=== PATIENT | female | born 1960 | race Caucasian/White ===

== ENCOUNTER → 2017-02-07 | Outpatient (REF) | payer OTHER ==
[2017-02-07 11:37] LABS: ALBUMIN 3.7 GM/DL (3.2-5.2); ALBUMIN/GLOBULIN RATIO 1.12 (1.00-1.93); ALKALINE PHOSPHATASE 67 U/L (45-117); ALT/SGPT 21 U/L (12-78); ANION GAP 7 MEQ/L (8-16); AST/SGOT 15 U/L (15-37); BILIRUBIN,TOTAL 0.5 MG/DL (0.2-1.0); BLOOD UREA NITROGEN 19 MG/DL (7-18); CALCIUM LEVEL 8.6 MG/DL (8.5-10.1); CARBON DIOXIDE LEVEL 29 MEQ/L (21-32); CHLORIDE LEVEL 105 MEQ/L (98-107); CHOLESTEROL LEVEL 192 MG/DL (<200); CREATININE FOR GFR 0.65 MG/DL (0.55-1.02); GLOMERULAR FILTRATION RATE > 60.0 (>51); GLUCOSE, FASTING 87 MG/DL (70-105); SODIUM LEVEL 141 MEQ/L (136-145); TRIGLYCERIDES LEVEL 64 MG/DL (<150)
== END ==
LOC: M SFHCCLAY 07:48
PROVIDERS: ATTEND Family Medicine
DX: I10 Essential (primary) hypertension (principal); E78.2 Mixed hyperlipidemia; E55.9 Vitamin D deficiency, unspecified

== ENCOUNTER → 2018-08-13 | Outpatient (REF) | payer OTHER ==
[2018-08-13 12:08] LABS: ALBUMIN 3.8 GM/DL (3.2-5.2); ALBUMIN/GLOBULIN RATIO 1.27 (1.00-1.93); ALKALINE PHOSPHATASE 52 U/L (45-117); ALT/SGPT 16 U/L (12-78); ANION GAP 6 MEQ/L (8-16); AST/SGOT 15 U/L (7-37); BILIRUBIN,TOTAL 0.8 MG/DL (0.2-1.0); BLOOD UREA NITROGEN 16 MG/DL (7-18); CALCIUM LEVEL 8.6 MG/DL (8.5-10.1); CARBON DIOXIDE LEVEL 33 MEQ/L (21-32); CHLORIDE LEVEL 101 MEQ/L (98-107); CHOLESTEROL LEVEL 173 MG/DL (<200); CHOLESTEROL RISK RATIO 2.661 (<5); CREATININE FOR GFR 0.73 MG/DL (0.55-1.30); GLOMERULAR FILTRATION RATE > 60.0 (>51); GLUCOSE, FASTING 94 MG/DL (70-100); HDL CHOLESTEROL 65 MG/DL (>40); LDL CHOLESTEROL 96 MG/DL (<100); NON-HDL-C 108 MG/DL; POTASSIUM SERUM 3.1 MEQ/L (3.5-5.1); SODIUM LEVEL 140 MEQ/L (136-145); TOTAL PROTEIN 6.8 GM/DL (6.4-8.2); TRIGLYCERIDES LEVEL 59 MG/DL (<150)
[2018-08-15 00:11] LABS: VITAMIN D 1,25 DIHYDROXY 33.7 pg/mL (19.9-79.3)
== END ==
LOC: M SFHCCLAY 07:44
DX: I10 Essential (primary) hypertension (principal); E78.2 Mixed hyperlipidemia; E55.9 Vitamin D deficiency, unspecified
CPT/HCPCS: 80053

== ENCOUNTER 2019-04-19 09:04 | Emergency (ER) | payer OTHER ==
[~2019-04-19] VITALS: Ht 175.3 cm; Wt 97.7 kg
[2019-04-19 09:44] LABS: BASO % 0.4 % (0.0-1.0); EOS # 0.1 10^3/uL (0.0-0.50); EOS % 1.4 % (0.0-3.0); HEMATOCRIT 32.5 % (36.0-47.0); HEMOGLOBIN 10.6 g/dl (12.0-15.5); LYMPH # 1.3 10^3/uL (1.5-4.5); LYMPH % 24.9 % (24.0-44.0); MEAN CORPUSCULAR HEMOGLOBIN 31.9 pg (27.0-33.0); MEAN CORPUSCULAR HGB CONC 32.6 g/dl (32.0-36.5); MEAN CORPUSCULAR VOLUME 97.9 fl (80.0-96.0); MONO # 0.3 10^3/uL (0.0-0.8); MONO % 6.7 % (0.0-5.0); NEUTROPHILS # 3.4 10^3/uL (1.8-7.7); NEUTROPHILS % 66.4 % (36.0-66.0); PLATELET COUNT, AUTOMATED 282 10^3/uL (150-450); RED BLOOD COUNT 3.32 10^6/uL (4.00-5.40); WHITE BLOOD COUNT 5.1 10^3/uL (4.0-10.0)
[2019-04-19] MEDS ORDERED: NS 1,000 ML IV ONE (10:00)
[2019-04-19 10:10] LABS: ALT/SGPT 16 U/L (12-78); BILIRUBIN,TOTAL 0.5 MG/DL (0.2-1.0); BLOOD UREA NITROGEN 13 MG/DL (7-18); CALCIUM LEVEL 8.7 MG/DL (8.5-10.1); CARBON DIOXIDE LEVEL 28 MEQ/L (21-32); CHLORIDE LEVEL 109 MEQ/L (98-107); CREATININE FOR GFR 0.71 MG/DL (0.55-1.30); GLOMERULAR FILTRATION RATE > 60.0 (>51); GLUCOSE, FASTING 93 MG/DL (70-100); POTASSIUM SERUM 3.8 MEQ/L (3.5-5.1); SODIUM LEVEL 141 MEQ/L (136-145); TOTAL PROTEIN 6.8 GM/DL (6.4-8.2)
--- NOTE | 2019-04-19 11:42 | REP ---
Sonography: History: Heavy vaginal bleeding. Findings: Transabdominal and transvaginal scanning are performed. Visualized bladder gaspar are smooth. The uterus is quite enlarged measuring 15.1 x 5.3 x 6.7 cm in overall dimension. Endometrial echo is thickened measuring 2.8 cm in greatest dimension. There is a hypoechoic nodular area in the lower uterine segment endometrium measuring 1.5 x 1.4 x 0.8 cm. A hypoechoic myometrial area is seen posteriorly in the uterus consistent with a fibroid measuring 1.9 cm. There is a smaller 1.2 cm fibroid anteriorly. Neither ovary could be visualized transabdominally or transvaginally probably due to uterine enlargement. No adnexal mass, cyst or free fluid is appreciated. Impression: Enlarged fibroid uterus, 15 cm, with thickened endometrium and a possible endometrial polyp, 1.5 cm in greatest diameter. Neither ovary is directly visualized. No free fluid. Electronically Signed by Warren Ames MD 04/19/2019 04:49 P
[2019-04-19 11:54] LABS: HEMOGLOBIN 9.5 g/dl (12.0-15.5)
[2019-04-19] MEDS ORDERED: medroxyPROGESTERone 5MG TABLET PO STA (12:16)
[2019-04-19 12:55] VITALS: BP 153/76
[2019-04-19] MEDS ORDERED: PROV10TA PO (13:23)
[2019-04-20] MEDS ORDERED: PROPOFOL 200 MG/20 ML VIAL As Ordered ONE (15:28)
[2019-04-20] MEDS ORDERED: ROCURONIUM BROMIDE 50 MG/5 ML VIAL As Ordered ONE (15:28)
[2019-04-20] MEDS ORDERED: LIDOCAINE 2% INJ 100 MG/5 ML SDV (FOR ANES.) As Ordered ONE (15:29)
[2019-04-20] MEDS ORDERED: dexameTHASONE 4 MG/ML 1ML VIAL (J1100) As Ordered ONE (15:31)
[2019-04-20] MEDS ORDERED: ONDANSETRON 4MG/2ML VIAL (J2405) As Ordered ONE (15:31)
[2019-04-20] MEDS ORDERED: KETOROLAC 60 MG/2 ML VIAL (J1885) As Ordered ONE (16:06)
--- NOTE | 2019-04-25 17:34 | ED PDOC ---
Post-Departure Follow-Up dr martinez faxed formal report of pelvic us for fu Akila Lara MD Apr 25, 2019 17:34
== END 2019-04-19 13:34 | disposition home or self-care (01) ==
LOC: M ED 09:04
DX: D25.9 Leiomyoma of uterus, unspecified (principal); N92.0 Excessive and frequent menstruation with regular cycle; I10 Essential (primary) hypertension; Z86.19 Personal history of other infectious and parasitic diseases; Z87.442 Personal history of urinary calculi; Z87.448 Personal history of other diseases of urinary system; Z88.2 Allergy status to sulfonamides

== ENCOUNTER 2019-04-20 10:59 | Day surgery (SDC) | payer OTHER ==
[~2019-04-20] VITALS: Ht 175.3 cm; Wt 96.1 kg
[~2019-04-20 10:59] MED LIST: PROV10TA PO; SIMETHICONE 80 MG CHEW TAB PO SCH
[2019-04-20 11:28] VITALS: BP 148/88
[2019-04-20 11:55] LABS: BASO % 0.3 % (0.0-1.0); EOS % 0.5 % (0.0-3.0); HEMATOCRIT 30.4 % (36.0-47.0); HEMOGLOBIN 10.1 g/dl (12.0-15.5); LYMPH # 1.4 10^3/uL (1.5-4.5); LYMPH % 23.9 % (24.0-44.0); MEAN CORPUSCULAR HEMOGLOBIN 32.7 pg (27.0-33.0); MEAN CORPUSCULAR HGB CONC 33.2 g/dl (32.0-36.5); MEAN CORPUSCULAR VOLUME 98.4 fl (80.0-96.0); MONO # 0.2 10^3/uL (0.0-0.8); MONO % 4.1 % (0.0-5.0); NEUTROPHILS # 4.2 10^3/uL (1.8-7.7); NEUTROPHILS % 70.9 % (36.0-66.0); PLATELET COUNT, AUTOMATED 279 10^3/uL (150-450); RED BLOOD COUNT 3.09 10^6/uL (4.00-5.40); WHITE BLOOD COUNT 5.9 10^3/uL (4.0-10.0)
[2019-04-20] MEDS ORDERED: LR 1,000 ML IV SCH ×2 (12:00→20:30)
[2019-04-20 16:30] VITALS: BP 146/82
[2019-04-20] MEDS ORDERED: fentaNYL 250 MCG/5 ML INJECTION (J3010) As Ordered ONE (16:45)
[2019-04-20] MEDS ORDERED: MIDAZOLAM INJ 2 MG/2 ML VIAL (J2250) As Ordered ONE (16:45)
[2019-04-20] MEDS ORDERED: FLUORESCEIN 10% (100MG/ML) 5 ML VIAL As Ordered ONE (16:51)
[2019-04-20] MEDS ORDERED: BUPIVACAINE/EPIN 0.25% 30 ML VIAL As Ordered ONE (16:51)
[2019-04-20] MEDS ORDERED: ceFAZolin 2 GM/D5W 50 ML IV BAG (J0690 PER 500MG) As Ordered ONE (18:17)
[2019-04-20] MEDS ORDERED: ROCURONIUM BROMIDE 50 MG/5 ML VIAL As Ordered ONE (18:23)
[2019-04-20] MEDS ORDERED: ACETAMINOPHEN 1000MG 100ML IV BTL (OFIRMEV) (J0131 PER 10MG) As Ordered ONE (19:01)
[2019-04-20] MEDS ORDERED: KETOROLAC 60 MG/2 ML VIAL (J1885) As Ordered ONE (19:01)
[2019-04-20] MEDS ORDERED: SUGAMMADEX SODIUM 500 MG/5 ML VIAL (BRIDION) As Ordered ONE (19:29)
[2019-04-20] MEDS: LR 1,000 ML IV SCH (19:54)
[2019-04-20] MEDS ORDERED: PERCOCET 5MG/325MG TAB PO PRN (20:00)
[2019-04-20] MEDS ORDERED: ONDANSETRON 4MG/2ML VIAL (J2405) IV PRN ×2 (20:00→20:30)
[2019-04-20] MEDS ORDERED: METOCLOPRAMIDE INJ 10MG/2ML VIAL (J2765) As Ordered ONE (20:11)
[2019-04-20] MEDS ORDERED: ONDANSETRON 4MG/2ML VIAL (J2405) As Ordered ONE (20:11)
[2019-04-20] MEDS ORDERED: METOCLOPRAMIDE INJ 10MG/2ML VIAL (J2765) IV PRN (20:30)
[2019-04-20] MEDS ORDERED: MORPHINE 10 MG/ML 1ML VIAL (J2270) IV PRN (20:30)
[2019-04-20] MEDS ORDERED: fentaNYL 100 MCG/2 ML INJECTION (J3010) As Ordered ONE (20:34)
[2019-04-20] MEDS: fentaNYL 100 MCG/2 ML INJECTION (J3010) IV PRN ×4 (20:35→20:55)
[2019-04-20 21:15] VITALS: BP 156/76
[2019-04-20 21:45] VITALS: BP 163/74
[2019-04-20 22:45] VITALS: BP 160/74
[2019-04-21] VITALS: BP 142/80
[2019-04-21 01:00] VITALS: BP 136/65
[2019-04-21 02:00] VITALS: BP 128/69
[2019-04-21] MEDS: IBUPROFEN 800 MG TAB PO SCH ×2 (02:59→11:15)
[2019-04-21] MEDS: LR 1,000 ML IV SCH ×2 (04:26→11:25)
[2019-04-21 05:00] VITALS: BP 131/67
[2019-04-21 07:01] LABS: BASO % 0.1 % (0.0-1.0); HEMATOCRIT 25.8 % (36.0-47.0); HEMOGLOBIN 8.5 g/dl (12.0-15.5); LYMPH # 0.8 10^3/uL (1.5-4.5); LYMPH % 6.7 % (24.0-44.0); MEAN CORPUSCULAR HEMOGLOBIN 31.4 pg (27.0-33.0); MEAN CORPUSCULAR HGB CONC 32.9 g/dl (32.0-36.5); MEAN CORPUSCULAR VOLUME 95.2 fl (80.0-96.0); MONO # 0.5 10^3/uL (0.0-0.8); MONO % 3.8 % (0.0-5.0); NEUTROPHILS # 10.7 10^3/uL (1.8-7.7); NEUTROPHILS % 89.1 % (36.0-66.0); PLATELET COUNT, AUTOMATED 243 10^3/uL (150-450); RED BLOOD COUNT 2.71 10^6/uL (4.00-5.40)
[2019-04-21] MEDS: SIMETHICONE 80 MG CHEW TAB PO SCH ×2 (07:08→11:15)
[2019-04-21 08:30] VITALS: BP 152/78
[2019-04-21 12:00] VITALS: BP 131/63
--- NOTE | 2019-04-22 09:07 | RO ---
DATE OF PROCEDURE: 04/20/2019 Gabriela is a 58-year-old female with an extensive history of abnormal uterine bleeding, postmenopausal bleeding, enlarged fibroid uterus. She had an endometrial biopsy that was negative. She presented with acute bleeding with a visit to the emergency room and bleeding heavily. After extensive counseling a decision was made to proceed with robotic-assisted total hysterectomy, bilateral salpingo-oophorectomy and cystoscopy. The patient was originally scheduled for this procedure on 05/12 and due to her bleeding and her level of discomfort we pushed the surgery in for today. PREOPERATIVE DIAGNOSES: 1. Enlarged fibroid uterus. 2. Postmenopausal bleeding. 3. Acute bleeding. 4. Obesity. POSTOPERATIVE DIAGNOSES: 1. Enlarged fibroid uterus. 2. Postmenopausal bleeding. 3. Acute bleeding. 4. Obesity. PROCEDURE: 1. Robotic-assisted total hysterectomy. 2. Bilateral salpingo-oophorectomy. 3. Cystoscopy. SURGEON: Adair Natarajan DO COST CONTROL ANALYST: ANESTHESIA: General. COMPLICATIONS: None. ESTIMATED BLOOD LOSS: Less than 100 mL. FINDINGS: An enlarged uterus sounding to approximately 14 cm in size giving a total uterine size of about 15-16 cm. Normal appearing tubes and ovaries. On cystoscopy bilateral ureteral jets were noted. No evidence of any bladder injury noted. PROCEDURE: After visiting with the patient in the holding area and reaffirming informed consent, the patient was taken to the operating room where general anesthetic was found to be adequate. She was then draped and prepped in the usual sterile fashion in the dorsal lithotomy position. At this point a Escobar catheter was placed in the bladder for drainage. We then placed a HUMI II uterine manipulator. I then turned my attention to the abdomen where a Veress needle was used at the umbilicus to infiltrate the belly to approximately 3.5 liters. We then placed one 8 mm supraumbilical incision approximately 4-5 cm below the xiphoid process then the trocar was inserted under direct visualization. We then placed two left lateral ports, one in midline and the other laterally. All 8 mm trocars for robotic arm one and the assist port. On the right side another port was placed for robotic arm two. We then brought robot to the patient's side in a 45 degrees angle. Laser line was brought to the trocars and lined up in a midline fashion. The camera port was then docked, the camera was placed and the targeting process was then started. After passing the targeting process the robotic arm one and two was docked in the usual fashion. The vessel sealer was placed in arm one and bipolar grasper in arm two. I then unscrubbed and went to the surgeon console and began the hysterectomy. The infundibulopelvic ligaments were identified. This was cauterized and cut using the vessel sealer. Serial bites were then taken to include the full fallopian tube all the way down to the round ligament. The round ligament was also cauterized and cut in a similar fashion, and the uterine arteries were cauterized and cut in a similar fashion. At this point, the anterior leaflet of the broad ligament was dissected to create a bladder flap. The opposite side was done in a similar fashion. The bladder flap was completed. After completing the bladder flap, I then removed the vessel sealer and Endo shear was placed, an anterior and posterior colpotomy was performed. The uterus, cervix and bilateral fallopian tube was then removed through the vagina. A moistened sponge lap was placed in the vagina to maintain pneumoperitoneum. 1 mL of Furacin was given by the anesthesiologist to help with the cystoscopy. I then closed the vaginal cuff using #2-0 V-Loc suture on a running fashion. The peritoneum over the vaginal cuff was then closed. The pelvis copiously irrigated with normal saline. No evidence of any bladder or urethral injury was noted. I then rescrubbed, retrograde filled the bladder with approximately 230 mL of normal saline. A cystoscopy was performed, bilateral ureteral jets were noted. No evidence of any bladder injury noted. At this point, the Escobar catheter was placed back in the bladder and we then turned our attention to the abdomen where the robot was then undocked and the robotic ports were closed using #3-0 Vicryl in a subcuticular fashion. 0.25% Marcaine was placed for postoperative pain. The patient tolerated procedure well. She was then transferred to recovery room in stable condition.
== END 2019-04-21 13:10 | disposition home or self-care (01) ==
LOC: M SDC 10:59 → M PED 11:20 → M SDC 04-21 13:10
PROVIDERS: ATTEND Obstetrics & Gynecology
DX: N93.9 Abnormal uterine and vaginal bleeding, unspecified (principal); N72 Inflammatory disease of cervix uteri; N85.01 Benign endometrial hyperplasia; N80.0 Endometriosis of uterus; N95.0 Postmenopausal bleeding; I10 Essential (primary) hypertension; Z79.899 Other long term (current) drug therapy; E66.9 Obesity, unspecified
CPT/HCPCS: 36415; 58571; 85025; 86850; 86900; 86901; 86920; 88309; J0131; J0690; J1100; J1885; J2250; J2405; J2765; J3010

== ENCOUNTER → 2019-08-10 | Outpatient (REF) | payer OTHER ==
[~2019-08-10] MED LIST changes: -SIMETHICONE 80 MG CHEW TAB PO SCH
[2019-08-10 12:46] LABS: ALBUMIN 3.7 GM/DL (3.2-5.2); ALT/SGPT 20 U/L (12-78); BILIRUBIN,TOTAL 0.7 MG/DL (0.2-1.0); BLOOD UREA NITROGEN 15 MG/DL (7-18); CALCIUM LEVEL 8.5 MG/DL (8.8-10.2); CARBON DIOXIDE LEVEL 31 MEQ/L (21-32); CHLORIDE LEVEL 107 MEQ/L (98-107); CHOLESTEROL LEVEL 169 MG/DL (<200); CHOLESTEROL RISK RATIO 2.036 (<5); CREATININE FOR GFR 0.71 MG/DL (0.55-1.30); GLOMERULAR FILTRATION RATE > 60.0 (>45); GLUCOSE, FASTING 91 MG/DL (70-100); HDL CHOLESTEROL 83 MG/DL (>40); IRON (FE) 69 UG/DL (50-170); LDL CHOLESTEROL 75 MG/DL (<100); NON-HDL-C 86 MG/DL; POTASSIUM SERUM 4.2 MEQ/L (3.5-5.1); SODIUM LEVEL 141 MEQ/L (136-145); TOTAL PROTEIN 6.7 GM/DL (6.4-8.2); TRIGLYCERIDES LEVEL 55 MG/DL (<150)
[2019-08-10 15:35] LABS: BASO % 0.7 % (0.0-1.0); EOS # 0.1 10^3/uL (0.0-0.5); EOS % 1.4 % (0.0-3.0); HEMATOCRIT 34.1 % (36.0-47.0); HEMOGLOBIN 10.5 g/dl (12.0-15.5); LYMPH # 1.3 10^3/uL (1.5-5.0); MEAN CORPUSCULAR HEMOGLOBIN 26.7 pg (27.0-33.0); MEAN CORPUSCULAR HGB CONC 30.8 g/dl (32.0-36.5); MEAN CORPUSCULAR VOLUME 86.8 fl (80.0-96.0); MONO # 0.4 10^3/uL (0.0-0.8); MONO % 8.4 % (0.0-5.0); NEUTROPHILS # 2.5 10^3/uL (1.5-8.5); NEUTROPHILS % 59.3 % (36.0-66.0); PLATELET COUNT, AUTOMATED 269 10^3/uL (150-450); RED BLOOD COUNT 3.93 10^6/uL (4.00-5.40); WHITE BLOOD COUNT 4.2 10^3/uL (4.0-10.0)
== END ==
LOC: M SFHCCLAY 08:01
PROVIDERS: ATTEND Family Medicine
DX: I10 Essential (primary) hypertension (principal); E55.9 Vitamin D deficiency, unspecified; E78.2 Mixed hyperlipidemia; D64.9 Anemia, unspecified

== ENCOUNTER → 2020-02-15 | Outpatient (REF) | payer OTHER ==
[2020-02-15 11:46] LABS: BASO % 0.5 % (0.0-1.0); EOS # 0.1 10^3/uL (0.0-0.5); EOS % 2.4 % (0.0-3.0); HEMATOCRIT 39.2 % (36.0-47.0); HEMOGLOBIN 12.9 g/dl (12.0-15.5); LYMPH # 1.3 10^3/uL (1.5-5.0); MEAN CORPUSCULAR HEMOGLOBIN 31.2 pg (27.0-33.0); MEAN CORPUSCULAR HGB CONC 32.9 g/dl (32.0-36.5); MEAN CORPUSCULAR VOLUME 94.7 fl (80.0-96.0); MONO # 0.3 10^3/uL (0.0-0.8); MONO % 7.3 % (0.0-5.0); NEUTROPHILS # 2.5 10^3/uL (1.5-8.5); NEUTROPHILS % 59.6 % (36.0-66.0); PLATELET COUNT, AUTOMATED 263 10^3/uL (150-450); RED BLOOD COUNT 4.14 10^6/uL (4.00-5.40); WHITE BLOOD COUNT 4.2 10^3/uL (4.0-10.0)
[2020-02-15 12:09] LABS: BLOOD UREA NITROGEN 14 MG/DL (7-18); CALCIUM LEVEL 8.5 MG/DL (8.8-10.2); CARBON DIOXIDE LEVEL 30 MEQ/L (21-32); CHLORIDE LEVEL 106 MEQ/L (98-107); FOLATE 20.8 NG/ML (>5.4); GLOMERULAR FILTRATION RATE > 60.0 (>45); GLUCOSE, FASTING 86 MG/DL (70-100); IRON (FE) 151 UG/DL (50-170); POTASSIUM SERUM 3.9 MEQ/L (3.5-5.1); SODIUM LEVEL 141 MEQ/L (136-145); THYROXINE (T4) 7.5 UG/DL (4.5-12.0); TOTAL T3 92.9 NG/DL (60.0-181.0); VITAMIN B12 LEVEL 364 PG/ML (247-911)
== END ==
LOC: M SFHCCLAY 07:43
PROVIDERS: ATTEND Family Medicine
DX: I10 Essential (primary) hypertension (principal); D64.9 Anemia, unspecified; R63.5 Abnormal weight gain

== ENCOUNTER → 2023-07-17 | Outpatient (REF) | payer OTHER | LOC: M SFHCCLAY 11:53 | PROVIDERS: ATTEND Family Medicine | DX: I10 Essential (primary) hypertension (principal); E78.2 Mixed hyperlipidemia; E55.9 Vitamin D deficiency, unspecified; D64.9 Anemia, unspecified; Z53.9 Procedure and treatment not carried out, unspecified reason ==

== ENCOUNTER → 2024-08-12 | Outpatient (CLI) | payer MEDICARE, OTHER | LOC: M PLARAD 12:29 | PROVIDERS: ATTEND Family Medicine | DX: M79.622 Pain in left upper arm (principal); M75.02 Adhesive capsulitis of left shoulder; M75.102 Unspecified rotator cuff tear or rupture of left shoulder, not specified as traumatic ==

== ENCOUNTER → 2024-09-10 | Outpatient (CLI) | payer MEDICARE | LOC: M SOG 11:30 | PROVIDERS: ATTEND Physician Assistant | DX: M19.012 Primary osteoarthritis, left shoulder (principal); M25.512 Pain in left shoulder ==

== ENCOUNTER → 2025-03-26 | Outpatient (CLI) | payer MEDICARE | LOC: M RAD 08:53 | PROVIDERS: ATTEND Family Medicine | DX: R29.818 Other symptoms and signs involving the nervous system (principal); M79.604 Pain in right leg; M79.605 Pain in left leg ==